=== PATIENT | female | born 1975 ===

== ENCOUNTER 2020-07-07 12:45 | Inpatient (IN) | payer OTHER ==
[~2020-07-07] VITALS: Ht 170.2 cm; Wt 74.8 kg
[2020-07-07] MEDS ORDERED: ADIPEX-P37.5 M1 PO (15:06)
[2020-07-14] MEDS ORDERED: TESTOSTERO200 MG/1 M (08:10)
[2020-07-14] MEDS ORDERED: SPIRONOLACTONE100 MG (08:10)
[2020-07-16] MEDS ORDERED: FAMOTIDINE20 MG PO (06:36)
[2020-07-16] MEDS ORDERED: IBUPROFEN800 MG PO (06:36)
[2020-07-16] MEDS ORDERED: NEURONTIN600 MG PO (06:36)
[2020-07-16] MEDS ORDERED: SIMETHICONE125 M1 PO (06:37)
== END 2020-07-16 09:48 | disposition home or self-care (01) | DRG 743 ==
LOC: EDSTATUS 12:45 → ADM 12:45 → OB/GYN 07-14 06:10 → O/R 07-14 06:10 → OB/GYN 07-14 10:34 → SURH 07-14 12:00 → OB/GYN 07-16 09:48
PROVIDERS: ADMIT Obstetrics & Gynecology; ATTEND Obstetrics & Gynecology
PROC: 0UB70ZZ Excision of Bilateral Fallopian Tubes, Open Approach (ICD-10-PCS; 2020-07-14)
PROC: 0UT90ZZ Resection of Uterus, Open Approach (ICD-10-PCS; principal; 2020-07-14 12:00)
DX: N72 Inflammatory disease of cervix uteri (principal); D25.1 Intramural leiomyoma of uterus; D25.0 Submucous leiomyoma of uterus; D25.2 Subserosal leiomyoma of uterus